=== PATIENT | male | born 1940 | race Caucasian/White ===

== ENCOUNTER 2016-06-22 10:32 | Outpatient (CLI) | payer OTHER, MEDICARE ==
--- NOTE | 2016-06-25 14:48 | DIAGNOSTIC IMAGING REPORT ---
PROCEDURE: US SOFT TISSUE THYR/NECK/HEAD INDICATION: THYROID NODULE TECHNIQUE: Rolon scale and color Doppler sonographic images of the thyroid gland were obtained. COMPARISON: None. FINDINGS: RIGHT LOBE: Measures 5 x 1.5 x 1.8 cm and demonstrate mild heterogeneity but no focal nodules. LEFT LOBE: Measures 5.2 x 2.2 x 2.1 cm. There is a 9 mm complex nodule in the mid pole and 4 mm nodule in the lower pole. ISTHMUS: Measures 5 mm. IMPRESSION: 1. Two small left thyroid nodule suggestive of adenomas. Recommend comparison with prior studies.
== END 2016-06-22 23:00 ==
LOC: US SRH 10:32
DX: E04.1 Nontoxic single thyroid nodule (principal); R93.8 Abnormal findings on diagnostic imaging of other specified body structures